=== PATIENT | male | born 1980 | race Caucasian/White ===

== ENCOUNTER 2021-05-31 13:43 | Emergency (ER) | payer MEDICAID, SELFPAY ==
[2021-05-31 13:44] VITALS: BP 147/71; PULSE 79; RESP 19; TEMP 36.7; O2SAT 99; BMI 33.0
--- NOTE | 2021-05-31 13:51 | EKG12_ITS ---
Test Reason : CP Blood Pressure : / mmHG Vent. Rate : 079 BPM Atrial Rate : 079 BPM P-R Int : 152 ms QRS Dur : 094 ms QT Int : 380 ms P-R-T Axes : 058 043 037 degrees QTc Int : 435 ms Normal sinus rhythm Normal ECG Confirmed by SANDRA TURNER, WILFRIDO ([id number]), production editor ARIS NASCIMENTO ([id number]) on 06/04/2021 1:09:04 PM Referred By: RODRIGO Confirmed By:WILFRIDO FLORES MD
--- NOTE | 2021-05-31 13:51 | RAD_ITS ---
STUDY: X-RAY CHEST REASON FOR EXAM: Male, 40 years old. chest pain TECHNIQUE: AP COMPARISON: None. FINDINGS: EKG leads project over the chest. The lungs are clear and expanded. There is no demonstrated pleural abnormality. Normal size heart. Normal mediastinum and kristie. Normal visualized pulmonary arteries. Normal visualized aortic arch and descending thoracic aorta. Normal visualized thoracic spine. Normal visualized ribs, clavicles, and shoulders. There is no demonstrated abnormality of the visualized soft tissue structures of the upper abdomen. RAD/Chest 1 View (Portable) IMPRESSION: Nonacute portable x-ray examination of the chest. Electronically Signed: Beltran Riley MD ([place]) at 14:24 EDT , Service support ,
--- NOTE | 2021-05-31 13:51 | CT_ITS ---
STUDY: CT BRAIN WITHOUT CONTRAST REASON FOR EXAM: Male, 40 years old. seizure. RADIATION DOSAGE (If Supplied By Facility): CTDIvol = ( 44.99 ) mGy, DLP = ( 779.24 ) mGycm TECHNIQUE: Transaxial CT imaging of the brain was performed without administration of intravenous contrast material. Individualized dose optimization techniques were used for this CT. COMPARISON: No relevant priors. FINDINGS: Normal soft tissue structures. Normal calvarium. Normal size ventricles and extra-axial spaces for the patient''s age. Normal white matter tracts of the cerebral hemispheres. Normal basal ganglia and thalami. Normal brainstem. Normal cerebellum. There is no intracranial hemorrhage. There are no findings of an acute ischemic infarction. Normal visualized paranasal sinuses. CT/Brain/Head without Contrast IMPRESSION: No acute intracranial hemorrhage or mass effect. Electronically Signed: Beltran Riley MD (Bro[place]) at 14:24 EDT , Service support ,
--- NOTE | 2021-05-31 13:53 | EX.ED.DYSGE1 ---
HPI History of Present Illness Chief Complaint: Chest Pain Detail of Chief Complaint: Acute seizure Informant: spouse/S.O. Onset/Context/Timing Onset: Today Context: Sudden Onset Timing: Continuous Current Severity: Gone Maximum Severity: Severe Narrative Narrative: 40-year-old male no significant past medical history. Does use medical marijuana. Female with him states she was driving down the road and he was in the front passenger seat and he had acute seizure. She believes it lasted about a minute. Said he had tonic-clonic activity. He woke up confused and had urinary incontinence during the episode. No seizure history. No family history of seizures. He is recently been sleeping. He denies any illicit drug use. He denies any recent head trauma. He has been sleeping. He denies any severe headaches. Prior to the seizure he thought he was having some reflux chest discomfort. Prior similar symptoms: No Recent Illness/Hospitalization: No PFSH PFS Medical History (Updated 05/31/21 @ 14:[address] Mark Sarah MD) Lumbar back pain Migraine Neck pain PTSD (post-traumatic stress disorder) no medical history Home Medications NK 05/31/21 [History Last Taken Unknown] Allergy/AdvReac Type Severity Reaction Status Date / Time aripiprazole [From Abilify] Allergy LOSS OF Verified 05/31/21 13:54 MOTOR FUNCTION Surgical History (Updated 05/31/21 @ 14:01 by Isabelle Petersen RN) H/O rhinoplasty Social History Smoking Status: Former smoker ROS ROS ED ROS Narrative Patient denies any recent illness. Review of Systems ROS Unobtainable: Denies due to encephalopathy Constitutional Constitutional ED: Denies chills or fever(s) Eyes Eyes: Denies blurry vision or change in vision ENT ENT ED: Denies ear pain or sore throat Cardiovascular Cardiovascular: Denies chest pain Respiratory/Chest Respiratory/Chest: Denies cough or dyspnea Gastrointestinal Gastrointestinal: Denies abdominal pain, diarrhea, nausea or vomiting Genitourinary Genitourinary ED: Denies dysuria or hematuria Musculoskeletal Musculoskeletal: Denies myalgias Integumentary Denies rash Neurologic Neurologic: Denies headache(s) Psychiatric Psychiatric: Denies depression Endocrine Endocrinology: Denies polyuria Allergic/Immunologic Allergic/Immunologic ED: Denies urticaria EXAM Physical Exam Narrative Exam Narrative: Well-appearing 40-year-old male. Vital signs stable afebrile. Pulse ox 99% on room air no hypoxia. HEENT exam normal. No signs of trauma. Neck nontender. Lungs are clear equal symmetrical bilaterally. Heart regular rhythm rate about 80 no murmur. Abdomen soft nontender normal bowel sounds no peritoneal signs. Moving all 4 extremities. Nontender. No deformity. Equal symmetrical 5-5 organizational research consultant strength. Dorsi plantar flexion intact. Neurologic exam normal. NIH is 0. Currently awake and alert he is amnestic to the event. He is acting normally. Normal speech no facial droop. Normal organizational research consultant strength bilaterally. Normal fingertip to nose bilaterally. Normal dorsi plantar flexion. No drift to either the upper or lower extremities. Back and skin unremarkable. Const Vital Signs: 05/31/21 13:44 05/31/21 13:57 05/31/21 14:01 Temperature 98.1 F Temperature Source Oral Pulse Rate 79 Respiratory Rate 19 H Respiratory Effort Normal Blood Pressure 147/71 H Blood Pressure Mean 96 Pulse Ox 99 98 Oxygen Delivery Method Room Air Room Air 05/31/21 14:53 Temperature Temperature Source Pulse Rate 85 Respiratory Rate 14 Respiratory Effort Blood Pressure 107/59 L Blood Pressure Mean 75 Pulse Ox 99 Oxygen Delivery Method Room Air Positive well nourished and well developed General Appearance ED: well developed HEENT Reports moist mucous membranes Negative for trauma or tenderness Eyes PERRL and EOMs intact bilaterally Neck no lymphadenopathy, supple and no JVD General: Negative for tenderness Chest Wall inspection of chest normal and palpation of chest normal Resp normal respiratory effort and clear to auscultation bilaterally Effort and Inspection: Negative for pain with movement Cardio regular rate, regular rhythm, S1 normal heart sound, S2 normal heart sound and no murmurs GI normal to inspection, nondistended, normoactive bowel sounds, non-tender, non-distended and no masses Auscultation: normoactive bowel sounds Palpation: soft; Negative for tender Back/Spine no CVA tenderness General Back: Negative for CVA tenderness Cervical Spine: Negative for cervical spine tenderness Thoracic Spine / Upper Back: Negative for thoracic spinal tenderness Extremity normal to inspection General Extremety ED: Negative for edema or tenderness General Extremity: Negative for edema Neuro oriented x3, CN's II-XII intact bilaterally and no sensory deficits noted Sensorium / Orientation: alert; Negative for orientation impaired, lethargic or stuporous Motor Exam: strength 5/5 throughout; Negative for general weakness or strength abnormal Psych mental status grossly normal Attitude: No agitated Mood & Affect: Negative for depressed, anxious or tearful Skin no rashes or lesions noted and no wounds MDM MDM MDM Narrative Medical decision making narrative: 40-year-old male with what sure sounds like new onset seizure episode. He had tonic-clonic activity. He had urinary incontinence. He was confused after the event. His exam currently is normal. Is awake and alert. He will undergo CAT scan and screening labs. Due to theheartburn he will get a cardiac work-up also. Lab Data Attestation: I reviewed the patient's lab results. Lab results narrative: CBC shows white 11.8. Hemoglobin 14. Chemistries show a gap of 15. And 1.2. High-sensitivity troponin less than 3. His potassium is low at 2.5. That will be rechecked. Chest x-ray unremarkable. Repeat potassium is 2.9. Tox screen positive for cannabis only and he is on medically prescribed marijuana. Repeat exam patient is doing well at 3:05 PM. Discussed at length with both he and the woman in the room. Discharged home. Outpatient follow-up with his physician. Outpatient EEG. And prescription for potassium. I also spoke to the patient about not driving and he does not drive at this time anyway. Labs: Laboratory Results - last 24 hr 05/31/21 05/31/21 05/31/21 11:35 11:35 14:05 WBC 11.8 H RBC 4.97 Hgb 14.8 Hct 43.1 MCV 86.7 MCH 29.8 MCHC 34.3 RDW Std Deviation 38.2 RDW Coeff of Tam 11.9 Plt Count 311 MPV 9.4 Immature Gran % (Auto) 0.500 Neut % (Auto) 42.7 L Lymph % (Auto) 46.6 H Mcintosh % (Auto) 6.8 Eos % (Auto) 2.0 Baso % (Auto) 1.4 H Absolute Neuts (auto) 5.1 Absolute Lymphs (auto) 5.50 H Nucleated RBC % 0 Sodium 137 Potassium 2.5 L* Chloride 104 Carbon Dioxide 18.0 L Anion Gap 15 BUN 12 Creatinine 1.24 Estim Creat Clear Calc 78.15 Est GFR (MDRD) Af Amer 84 Est GFR (MDRD) Non-Af 69 BUN/Creatinine Ratio 9.7 L Glucose 149 H Calcium 9.1 Troponin I High Sens < 3.0 L Urine Opiates Screen NEGATIVE Urine Methadone Screen NEGATIVE Ur Barbiturates Screen NEGATIVE Ur Phencyclidine Scrn NEGATIVE Ur Amphetamines Screen NEGATIVE U Methamphetamin-MDMA NEGATIVE U Benzodiazepines Scrn NEGATIVE Urine Cocaine Screen NEGATIVE U Cannabinoids Screen POSITIVE H Ur Drug Screen Comment 05/31/21 14:30 WBC RBC Hgb Hct MCV MCH MCHC RDW Std Deviation RDW Coeff of Tam Plt Count MPV Immature Gran % (Auto) Neut % (Auto) Lymph % (Auto) Mcintosh % (Auto) Eos % (Auto) Baso % (Auto) Absolute Neuts (auto) Absolute Lymphs (auto) Nucleated RBC % Sodium Potassium 2.9 L Chloride Carbon Dioxide Anion Gap BUN Creatinine Estim Creat Clear Calc Est GFR (MDRD) Af Amer Est GFR (MDRD) Non-Af BUN/Creatinine Ratio Glucose Calcium Troponin I High Sens Urine Opiates Screen Urine Methadone Screen Ur Barbiturates Screen Ur Phencyclidine Scrn Ur Amphetamines Screen U Methamphetamin-MDMA U Benzodiazepines Scrn Urine Cocaine Screen U Cannabinoids Screen Ur Drug Screen Comment Radiography Chest X-Ray - ED: 1 View, Read by ED Physician, Heart, Lungs, Mediastinum, Bony Structures and No Acute Disease Diagnostic Testing: Radiology Impression Brain CT 05/31/21 13:51 IMPRESSION: No acute intracranial hemorrhage or mass effect. Electronically Signed: Beltran Riley MD ([place]) at 14:24 EDT , Service support , Chest X-Ray 05/31/21 13:51 IMPRESSION: Nonacute portable x-ray examination of the chest. Electronically Signed: Beltran Riley MD ([place]) at 14:24 EDT , Service support , Rhythm Strip Rhythm Strip: Sinus Rhythm Rate: 79 Ectopy: None EKG Initial EKG: Attestation: I personally reviewed and interpreted this EKG as follows: Interpretation: Sinus Rhythm and No Acute Injury Pattern Discharge Plan Triage Chief Complaint: Chest Pain ED Provider: Mark Sarah Dx/Rx/DC Orders Clinical Impression: Seizure Instructions: ED Hypokalemia, ED Seizure New Onset Unknown ... Prescriptions: No Action NK RF: 0 Primary Care Provider: Anup John Referrals: Anup John MD [Primary Care Provider] - As soon as possible Activity Restrictions/Additional Instructions: Take the potassium medication daily for 1 week. I would avoid using that GI [id number] medication you are using. It may have dropped her potassium. Call and follow-up your primary care physician as soon as possible. They should schedule you for an EEG to be evaluated for possible seizure disorder. And/or also see a neurologist. We will not start on any seizure medication at this time. Do not drive at this time. Disposition Disposition: Home, Self Care
[2021-05-31 14:01] VITALS: O2SAT 98
[2021-05-31 14:03] LABS: Absolute Neutrophil Count 5.1 X10^3/uL (2.0-7.7); Basophil# 0.16 X10^3/uL; Basophil% 1.4 % (0-1); Differential Indicated SCAN CRITERIA MET; Eosinophil# 0.24 X10^3/uL; Hematocrit 43.1 % (40-54); Hemoglobin 14.8 g/dL (13.0-16.5); Lymphocyte % 46.6 % (19-41); Mean Corp Hgb Conc 34.3 g/dL (32-36); Mean Corpuscular Hgb 29.8 pg (27.0-32.0); Mean Corpuscular Volume 86.7 fL (80-94); Mean Platelet Vol. 9.4 fl (6.2-12.0); Monocyte% 6.8 % (0-10); NRBC Flagged by Analyzer 0 % (0-5); Neutrophil # 5.05 X10^3/uL (2.7-7.7); Neutrophil % 42.7 % (47-70); POSITIVE DIFFERENTIAL YES; POSITIVE MORPHOLOGY YES; Platelet Count 311 K/mm3 (150-450); RBC Distribution Width CV 11.9 % (11.6-14.6); RBC Distribution Width SD 38.2 fl (35.1-43.9); Red Blood Count 4.97 M/mm3 (4.6-6.2); White Blood Count 11.8 K/mm3 (4.4-11.0)
[2021-05-31 14:18] LABS: Anion Gap 15 (5-15); BUN 12 mg/dL (7-18); BUN/Creat Ratio 9.7 RATIO (10-20); Calcium,Total 9.1 mg/dL (8.5-10.1); Chloride 104 mmol/L (98-107); Creatinine, Serum 1.24 mg/dL (0.70-1.30); EST Glomerular Filtration Rate 69 mL/min (>60); Est Glom Filt Rate - Afr Amer 84 mL/min (>60); Estimated Creatinine Clearance 78.15 ml/min; Glucose 149 mg/dL (74-106); Potassium 2.5 mmol/L (3.5-5.1); Sodium Level 137 mmol/L (136-145); Troponin-I HS < 3.0 pg/mL (3.0-78.5)
[2021-05-31 14:29] LABS: Amphetamine Urine VISTA NEGATIVE (<1000 ng/mL); Barbiturate Urine VISTA NEGATIVE (< 200 ng/mL); Benzodiazepine Urine VISTA NEGATIVE (< 200 ng/mL); Cocaine Urine VISTA NEGATIVE (< 300 ng/mL); Ecstacy Urine VISTA NEGATIVE (< 500 ng/mL); Methadone Urine VISTA NEGATIVE (< 300 ng/mL); PCP Urine VISTA NEGATIVE (< 25 ng/mL); THC Urine VISTA POSITIVE (< 50 ng/mL); Vista UDS pH Range 6
[2021-05-31 14:44] LABS: Potassium 2.9 mmol/L (3.5-5.1)
[2021-05-31 14:53] VITALS: BP 107/59; PULSE 85; RESP 14; O2SAT 99
[2021-06-02 08:20] LABS: Bedside Glucose 143 mg/dL (70-110)
== END 2021-05-31 15:21 | disposition home or self-care (01) ==
PROVIDERS: Emergency Provider Emergency Medicine; PCP Family Medicine
DX: R56.9 Unspecified convulsions (principal); G43.909 Migraine, unspecified, not intractable, without status migrainosus; F43.10 Post-traumatic stress disorder, unspecified; Z87.891 Personal history of nicotine dependence; Z79.899 Other long term (current) drug therapy
CPT/HCPCS: 36415; 70450; 71045; 80048; 80307; 82962; 84132; 84484; 85025; 93005; 99285; A4216